=== PATIENT | female | born 1960 | race Caucasian/White ===

== ENCOUNTER → 2017-02-15 | Outpatient (CLI) | payer BC ==
--- NOTE | 2017-02-16 09:30 | MM ---
Reason for exam: screening (asymptomatic). Last mammogram was performed 1 year and 4 months ago. History: Benign left mammotome panel of the left breast, December 13, 2012. Benign US LT VAD breast biopsy of the left breast, December 01, 2012. Physical Findings: A clinical breast exam by your physician is recommended on an annual basis and results should be correlated with mammographic findings. MG Screening Mammo w CAD Bilateral CC and MLO view(s) were taken. Prior study comparison: October 29, 2015, left breast MG work up mamm w CAD LT. October 25, 2015, bilateral MG 3d screening mammo w/cad. The breast tissue is extremely dense which could obscure a lesion on mammography. Previous mammotome biopsy in the left breast. There is chronic nodularity bilaterally. There is no dominant lesion. No significant changes when compared with prior studies. ASSESSMENT: Benign, BI-RAD 2 RECOMMENDATION: Routine screening mammogram of both breasts in 1 year.
== END | disposition home or self-care (01) ==
LOC: RADMAMWWP 08:23
PROVIDERS: ATTEND Internal Medicine
DX: Z12.31 Encounter for screening mammogram for malignant neoplasm of breast (principal)

== ENCOUNTER → 2019-04-26 | Outpatient (CLI) | payer BC ==
--- NOTE | 2019-04-28 10:22 | MM ---
Reason for exam: screening (asymptomatic). Last mammogram was performed 2 years and 2 months ago. History: Patient history of other cancer. Benign left mammotome panel of the left breast, December 13, 2012. Benign US LT VAD breast biopsy of the left breast, December 01, 2012. Physical Findings: A clinical breast exam by your physician is recommended on an annual basis and results should be correlated with mammographic findings. MG Screening Mammo w CAD Bilateral CC and MLO view(s) were taken. Prior study comparison: February 15, 2017, bilateral MG screening mammo w CAD. October 29, 2015, left breast MG work up mamm w CAD LT. The breast tissue is heterogeneously dense. This may lower the sensitivity of mammography. Focal asymmetry posterior left MLO view 5.8cm from nipple. ASSESSMENT: Incomplete: need additional imaging evaluation, BI-RAD 0 RECOMMENDATION: Special view mammogram of the left breast. If lesion persists on supplemental views, image directed ultrasound is recommended. [facility] will attempt to contact patient to return for supplemental views and ultrasound if indicated.
== END | disposition home or self-care (01) ==
LOC: RADMAMWWP 07:54
PROVIDERS: ATTEND Internal Medicine
DX: Z12.31 Encounter for screening mammogram for malignant neoplasm of breast (principal)
CPT/HCPCS: 77067

== ENCOUNTER → 2019-05-04 | Outpatient (CLI) | payer BC ==
--- NOTE | 2019-05-04 13:21 | MM ---
Reason for exam: additional evaluation requested from abnormal screening. Last mammogram was performed less than 1 month ago. History: Patient history of other cancer. Benign left mammotome panel of the left breast, December 13, 2012. Benign US LT VAD breast biopsy of the left breast, December 01, 2012. Physical Findings: Nurse did not find any significant physical abnormalities on exam. MG Work Up Mamm w CAD LT Spot compression CC, spot compression MLO, and LM view(s) were taken of the left breast. Prior study comparison: April 26, 2019, bilateral MG screening mammo w CAD. February 15, 2017, bilateral MG screening mammo w CAD. The breast tissue is heterogeneously dense. This may lower the sensitivity of mammography. Benign appearing calcifications in the left breast. The previously seen abnormality resolves on additional views and appears as fibroglandular tissue compatible with summation. Post surgical change on the left. Biopsy marker noted. These results were verbally communicated with the patient and result sheet given to the patient on 05/04/19. ASSESSMENT: Benign, BI-RAD 2 RECOMMENDATION: Return to routine screening mammogram schedule for both breasts.
== END | disposition home or self-care (01) ==
LOC: RADMAMWWP 10:13
PROVIDERS: ATTEND Internal Medicine
DX: R92.8 Other abnormal and inconclusive findings on diagnostic imaging of breast (principal)
CPT/HCPCS: 77065

== ENCOUNTER → 2020-04-10 | Outpatient (CLI) | payer BC ==
--- NOTE | 2020-04-12 13:51 | MM ---
Reason for exam: screening (asymptomatic). Last mammogram was performed 11 months ago. History: Patient history of other cancer. Benign left mammotome panel of the left breast, December 13, 2012. Benign US LT VAD breast biopsy of the left breast, December 01, 2012. Physical Findings: A clinical breast exam by your physician is recommended on an annual basis and results should be correlated with mammographic findings. MG Screening Mammo w CAD Bilateral CC and MLO view(s) were taken. Prior study comparison: April 26, 2019, bilateral MG screening mammo w CAD. February 15, 2017, bilateral MG screening mammo w CAD. The breast tissue is heterogeneously dense. This may lower the sensitivity of mammography. Previous mammotome biopsy in the left breast. No significant changes when compared with prior studies. ASSESSMENT: Benign, BI-RAD 2 RECOMMENDATION: Routine screening mammogram of both breasts in 1 year.
== END | disposition home or self-care (01) ==
LOC: RADMAMWWP 08:53
PROVIDERS: ATTEND Family Medicine
DX: Z12.31 Encounter for screening mammogram for malignant neoplasm of breast (principal)
CPT/HCPCS: 77067

== ENCOUNTER → 2021-09-01 | Outpatient (CLI) | payer BC ==
--- NOTE | 2021-09-02 10:09 | MM ---
Reason for exam: screening (asymptomatic). Last mammogram was performed 1 year and 5 months ago. History: Patient is postmenopausal and history of other cancer. Benign left mammotome panel of the left breast, December 13, 2012. Benign US LT VAD breast biopsy of the left breast, December 01, 2012. Physical Findings: A clinical breast exam by your physician is recommended on an annual basis and results should be correlated with mammographic findings. MG Screening Mammo w CAD Bilateral CC and MLO view(s) were taken. Prior study comparison: April 10, 2020, bilateral MG screening mammo w CAD. May 04, 2019, left breast MG work up mamm w CAD LT. The breast tissue is heterogeneously dense. This may lower the sensitivity of mammography. Finding #1: There is a 4 mm equal density (isodense), obscured mass in the lower outer quadrant of the left breast. Finding #2: There are typically benign calcifications in the left breast. Previous mammotome biopsy in the left breast. ASSESSMENT: Incomplete: need additional imaging evaluation, BI-RAD 0 RECOMMENDATION: Special view mammogram of the left breast. If lesion persists on supplemental views, image directed ultrasound is recommended. [facility] will attempt to contact patient to return for supplemental views and ultrasound if indicated.
== END | disposition home or self-care (01) ==
LOC: RADMAMWWP 08:27
PROVIDERS: ATTEND Family Medicine
DX: Z12.31 Encounter for screening mammogram for malignant neoplasm of breast (principal); Z78.0 Asymptomatic menopausal state
CPT/HCPCS: 77067

== ENCOUNTER → 2021-09-03 | Outpatient (CLI) | payer BC ==
--- NOTE | 2021-09-03 08:27 | MM ---
Reason for exam: additional evaluation requested from abnormal screening. Last mammogram was performed less than 1 month ago. History: Patient is postmenopausal and history of other cancer. Benign left mammotome panel of the left breast, December 13, 2012. Benign US LT VAD breast biopsy of the left breast, December 01, 2012. Physical Findings: A clinical breast exam by your physician is recommended on an annual basis and results should be correlated with mammographic findings. MG 3D Work Up W/Cad LT Spot compression CC, spot compression MLO, and LM view(s) were taken of the left breast. Prior study comparison: September 01, 2021, bilateral MG screening mammo w CAD. April 10, 2020, bilateral MG screening mammo w CAD. The breast tissue is heterogeneously dense. This may lower the sensitivity of mammography. There is no discrete abnormality including area of concern. These results were verbally communicated with the patient and result sheet given to the patient on 09/03/21. ASSESSMENT: Negative, BI-RAD 1 RECOMMENDATION: Return to routine screening mammogram schedule for both breasts.
== END | disposition home or self-care (01) ==
LOC: RADMAMWWP 07:24
PROVIDERS: ATTEND Family Medicine
DX: R92.8 Other abnormal and inconclusive findings on diagnostic imaging of breast (principal); Z78.0 Asymptomatic menopausal state
CPT/HCPCS: 77061; 77065

== ENCOUNTER → 2022-11-03 | Outpatient (CLI) | payer BC ==
--- NOTE | 2022-11-03 10:32 | BD ---
EXAMINATION TYPE: Axial Bone Density DATE OF EXAM: 11/03/2022 CLINICAL HISTORY: 62 years old Female. ICD-10 CODE: M81.0 AGERELATED OSTEO Height: 62in Weight: 128lb FRAX RISK QUESTIONS: Secondary Osteoporosis: 3. Menopause before 47: partial hysterectomy at 39 Rheumatoid Arthritis: moderate Current Tobacco Use: yes RISK FACTORS HISTORY OF: Active: yes Postmenopausal woman: yes MEDICATIONS: Additional Medications: bp med, vitamin d, reflux med Additional History: none EXAM MEASUREMENTS: Bone mineral densitometry was performed using the [employer] System. Bone mineral density as measured about the Lumbar spine is: ----- L1-L4(G/cm2): 1.238 T Score Values are as follows: ----- L1: 0.0 ----- L2: 0.3 ----- L3: 1.4 ----- L4: 0.1 ----- L1-L4: 0.5 Z Score Values are as follows: ----- L1: 1.4 ----- L2: 1.7 ----- L3: 2.9 ----- L4: 1.5 ----- L1-L4: 1.9 Bone mineral density has: no comparison % since study of: 11-17-2012 Bone mineral density about the R hip (g/cm2): 0.857 Bone mineral density about the L hip (g/cm2): 0.798 T Score values are as follows: -----R Neck: -0.4 -----L Neck: -1.6 -----R Total: -1.2 -----L Total: -1.7 Z Score values are as follows: -----R Neck: 1.0 -----L Neck: -0.2 -----R Total: -0.1 -----L Total: -0.6 Bone mineral density has: Increased 1.3% since study of: 11-17-2012 FRAX%s: The graph provided illustrates a 10.6% chance for a major osteoporotic fx and a 1.2% chance f or the hips probability for fx in 10 years time. IMPRESSION: Osteopenia (T Score between -2.5 and -1). There is slightly increased risk of fracture and the patient may be considered for treatment. Re-Screen 2-5 years. NOTE: T-SCORE=SD OF THE YOUNG ADULT MEAN.
--- NOTE | 2022-11-04 08:13 | MM ---
Reason for Exam: Screening (asymptomatic). Last mammogram was performed 1 year(s) and 2 month(s) ago. Patient History: Menarche at age 12. First Full-Term at age 25. Hysterectomy at age 39. Postmenopausal. 12/13/2012, Benign Core Biopsy on the left side. 12/01/2012, Benign Core Biopsy on the left side. Risk Values: Reny 5 year model risk: 2.1%. NCI Lifetime model risk: 10.6%. Prior Study Comparison: 04/10/2020 Bilateral Screening Mammogram, [facility]. 09/01/2021 Bilateral Screening Mammogram, [facility]. 09/03/2021 Left Diagnostic Mammogram, [facility]. Tissue Density: The breast tissue is heterogeneously dense. This may lower the sensitivity of mammography. Findings: Analyzed By CAD. There is no suspicious group of microcalcifications or new suspicious mass in either breast. Previous mammotome biopsy in the left breast. Overall Assessment: Benign, BI-RAD 2 Management: Screening Mammogram of both breasts in 1 year. A clinical breast exam by your physician is recommended on an annual basis and results should be correlated with mammographic findings. Electronically signed and approved by: Krish Ramos D.O.
== END | disposition home or self-care (01) ==
LOC: RADMAMWWP 09:19
PROVIDERS: ATTEND Internal Medicine Geriatric Medicine
DX: Z12.31 Encounter for screening mammogram for malignant neoplasm of breast (principal); M81.0 Age-related osteoporosis without current pathological fracture; M85.89 Other specified disorders of bone density and structure, multiple sites; Z78.0 Asymptomatic menopausal state
CPT/HCPCS: 77063; 77067; 77080

== ENCOUNTER → 2024-11-24 | Outpatient (CLI) | payer BC ==
--- NOTE | 2024-11-24 11:44 | XR ---
EXAMINATION TYPE: XR lumbar spine 2 or 3V DATE OF EXAM: 11/24/2024 11:27 AM COMPARISON: None. CLINICAL INDICATION: Female, 64 years old with history of M54.9 BACK PAIN, pain TECHNIQUE: 3 view(s) obtained. FINDINGS: Scoliosis is present. There are 5 lumbar-type vertebral bodies. Pedicles are intact. Disc heights abi ear preserved. Spondylosis is present. No spondylolisthesis. IMPRESSION: 1. Scoliosis [facility], , 11/24/2024 11:42 AM
--- NOTE | 2024-11-24 11:46 | XR ---
EXAMINATION TYPE: XR Hip Bilateral Complete DATE OF EXAM: 11/24/2024 11:27 AM COMPARISON: None. CLINICAL INDICATION: Female, 64 years old with history of M25.552 M25.551 HIP PAIN, pain TECHNIQUE: 2 view(s) obtained. FINDINGS: Femoral head articulates with the acetabulum. Degenerative joint changes are present and narrowing of the joint space is noted. No acute fracture or dislocation evident. Follow up exams can be performed as clinically indicated. IMPRESSION: 1. Moderate degenerative joint changes right hip. [facility], , 11/24/2024 11:44 AM
== END | disposition home or self-care (01) ==
LOC: RADXRMAIN 11:01
PROVIDERS: ATTEND Nurse Practitioner Family
DX: M41.86 Other forms of scoliosis, lumbar region (principal); M16.11 Unilateral primary osteoarthritis, right hip
CPT/HCPCS: 72100; 73521

== ENCOUNTER → 2024-12-25 | Day surgery (SDC) | payer BC ==
[2024-12-21 13:31] VITALS: BMI 25.6
[~2024-12-25] MED LIST: SODIUM CHLORIDE 0.9% 500 ML 500 ML IV SCH
[2024-12-25 12:33] LABS: HCT 38.6 % (37.2-46.3); HGB 13.6 g/dL (12.0-15.0); Lymphocytes % (A) 23.3 %; MCHC 35.2 g/dL (32.0-37.0); MCV 102.1 fL (80.0-97.0); Mean Platelet Volume 10.9 fL (9.5-12.2); Monocytes % (A) 10.6 %; Neutrophils % (A) 63.6 %; Platelet Count 225 10*3/uL (140-440); RBC 3.78 10*6/uL (4.10-5.20); RDW 11.8 % (11.5-14.5); WBC 4.73 10*3/uL (4.50-10.00)
[2024-12-25 12:34] LABS: Basophils # (A) 0.04 10*3/uL (0.00-0.10); Basophils % (A) 0.8 %; Eosinophils # (A) 0.07 10*3/uL (0.04-0.35); Eosinophils % (A) 1.5 %; Neutrophils # (A) 3.01 10*3/uL (1.80-7.70)
[2024-12-25 12:50] LABS: ALT 16 U/L (4-34); AST 24 U/L (14-36); African American GFR (CKD) >90 (>60 ml/min/1.73 sqM); Albumin 4.1 g/dL (3.5-5.0); Alkaline Phosphatase 94 U/L (38-126); Anion Gap 12 mmol/L; Blood Urea Nitrogen 14 mg/dL (7-17); Carbon Dioxide 23 mmol/L (22-30); Chloride 105 mmol/L (98-107); Glucose 102 mg/dL (74-99); Non-African American GFR(CKD) >90 (>60 ml/min/1.73 sqM); Potassium 3.9 mmol/L (3.5-5.1); Sodium 140 mmol/L (137-145); Total Bilirubin 0.5 mg/dL (0.2-1.3); Total Protein 6.7 g/dL (6.3-8.2)
[2024-12-25 12:57] LABS: NT-Pro-B-Type Natriuretic Pept 127 pg/mL
[2024-12-25 13:21] LABS: C Reactive Protein <0.5 mg/dL (<1.0)
[2024-12-25] MEDS: SODIUM CHLORIDE 0.9% 500 ML 500 ML IV ONE (13:53)
[2024-12-25] MEDS: BENZOCAINE SPRAY 1 EACH MM ONE ×2 (14:17→14:18)
[2024-12-25] MEDS: MIDAZOLAM 2 MG/2 ML VIAL IVP ONE (14:23)
[2024-12-25] MEDS: fentaNYL (PF) 50 MCG/1 ML VIAL IVP ONE (14:25)
[2024-12-25 15:42] LABS: Chol/HDL Ratio 2.29 Ratio; VLDL Calculation 16.92 mg/dL (5.00-40.00)
[2024-12-25 16:13] VITALS: RESP 16
[2024-12-25 16:22] VITALS: PULSE 78
--- NOTE | 2024-12-25 18:47 | P.TEE ---
Date of Procedure: 12/25/24 Description of Procedure(s): Procedure performed: 1. Transesophageal Echocardiogram with color flow doppler, pulsed wave doppler and continuous wave doppler, (CPT 06831, +[id number], [id number]) 2. Moderate conscious sedation. Sedation time 15 mins. (CPT 85430) Indications: Moderate to severe aortic regurgitation noticed on surface echocardiogram. Consent: I have discussed the risks, benefits and alternative therapies for the above-mentioned procedure. The patient has indicated understanding and acceptance of the risks of the procedure. Signed consent was obtained and was placed in the paper chart. Procedural Steps: Timeout was performed in usual fashion. Patient's heart rate, blood pressure, oxygen saturation and ECG were monitored. Benzocaine was sprayed liberally in the back of the throat. Bite block was placed between the jaw. 1.5 mg of Versed and 50 mcg of Fentanyl were administered intravenously. After achieving appropriate moderate conscious sedation, KERVIN probe was advanced without difficulty and without any immediate complications to the esophagus. KERVIN study was performed with color flow doppler, pulsed wave doppler and continuous wave doppler. The probe was then removed. Patient tolerated the procedure well. Patient was transferred to the post procedure area in stable and satisfactory condition. Throughout the procedure patient's heart rate, blood pressure, oxygen saturation and ECG were monitored. Total sedation time 15 mins. Complications: none FINDINGS Left Atrium: Moderate left atrial dilatation. No thrombus or mass seen. Left Atrial Appendage: No evidence of thrombus or mass seen in EDDIE Inter atrial septum: Intact inter-atrial septum with no evidence of atrial septal defect or patent foramen ovale on color Doppler. Left Ventricle: Normal global LV size and systolic function. Moderate concentric LVH. Right Atrium: Normal overall RA size Right Ventricle: Normal global RV size and systolic function Aortic Valve: Trileaflet aortic valve, commissural calcification noticed. Mild restriction and prolapse noticed of right coronary cusp resulting in moderate aortic regurgitation. PHT 359 ms, early systolic flow reversal noticed in aortic arch. Vena contracta 0.4 cm, VC/LVOT ratio 0.21 Mitral Valve: Struturally normal. No evidence of prolapse. Mild to moderate mitral regurgitation which is central Pulmonic Valve: Trace pulmonic regurgitation Tricuspid Valve: Mild tricuspid regurgitation Ascending aorta, Aortic root and Aortic arch: Normal size ascending aorta and aortic root. Ascending aorta measured 3.2 cm. Aortic root measured 3.2 cm. Mild intimal thickening noticed. Descending aorta: Mild intimal thickening. No pericardial effusion CONCLUSION: Moderate aortic regurgitation, Moderate mitral regurgitation Mild tricuspid regurgitation Normal LV size and systolic function with moderate concentric LVH Moderate left atrial dilatation Normal size aortic root and ascending aorta Plan Recommend aortic valve surveillance with repeat echocardiogram 12 to 24 months. Los Etienne MD, RPVI, FACC Thank you for allowing [facility] to participate in this patient's care. Feel free to reach out in case of any followup questions.
== END ==
LOC: CATHCVL 11:29
PROVIDERS: ATTEND Student in an Organized Health Care Education/Training Program
DX: I08.3 Combined rheumatic disorders of mitral, aortic and tricuspid valves (principal); I70.0 Atherosclerosis of aorta; I10 Essential (primary) hypertension; E78.5 Hyperlipidemia, unspecified; Z72.0 Tobacco use; Z79.899 Other long term (current) drug therapy
CPT/HCPCS: 93312; 93320; 93325; 83880; 80053; 80061; 84443; 85025; 86140; 83036; 99152; J2250; J3010